=== PATIENT | female | born 1995 | race Two or more races ===

== ENCOUNTER 2021-06-27 09:45 | Inpatient (IN) | payer OTHER ==
[~2021-06-27] VITALS: Ht 160 cm; Wt 3.2 kg
[2021-07-08] MEDS ORDERED: PRENATAL CAPLE1 EAC1 PO (16:37)
[2021-07-08] MEDS ORDERED: IRON325 MG PO (16:37)
[2021-07-09] MEDS ORDERED: INTEGRA F CAPS1 EAC1 (09:42)
== END 2021-07-12 11:26 | disposition home or self-care (01) | DRG 788 ==
LOC: LDR 07-07 09:45 → OB/GYN 07-09 16:48
PROVIDERS: ADMIT Obstetrics & Gynecology Maternal & Fetal Medicine; ATTEND Obstetrics & Gynecology Maternal & Fetal Medicine
PROC: 10D00Z1 Extraction of Products of Conception, Low, Open Approach (ICD-10-PCS; principal; 2021-07-08)
PROC: 3E033VJ Introduction of Other Hormone into Peripheral Vein, Percutaneous Approach (ICD-10-PCS; 2021-07-08)
PROC: 4A1HXFZ Monitoring of Products of Conception, Cardiac Rhythm, External Approach (ICD-10-PCS; 2021-07-08)
DX: O62.2 Other uterine inertia (principal); O14.04 Mild to moderate pre-eclampsia, complicating childbirth; O61.0 Failed medical induction of labor; O99.824 Streptococcus B carrier state complicating childbirth; Z37.0 Single live birth; Z3A.37 37 weeks gestation of pregnancy

== ENCOUNTER → 2021-07-03 | Outpatient (CLI) | payer OTHER | END | disposition home or self-care (01) | LOC: NST 14:43 | PROVIDERS: ATTEND Obstetrics & Gynecology Maternal & Fetal Medicine | DX: Z34.83 Encounter for supervision of other normal pregnancy, third trimester (principal) ==

== ENCOUNTER 2021-07-06 12:58 | Outpatient (CLI) | payer OTHER | END 2021-07-06 13:45 | disposition home or self-care (01) | LOC: NST 12:58 | PROVIDERS: ATTEND Obstetrics & Gynecology | DX: Z34.83 Encounter for supervision of other normal pregnancy, third trimester (principal) ==